=== PATIENT | male | born 1960 | race Caucasian/White ===

== ENCOUNTER 2016-07-09 08:20 | Emergency (ER) | payer MEDICAID ==
--- NOTE | 2016-07-09 08:31 | ED Physician Chart ---
Chief Complaint/HPI - Patient Information Date Seen:: 07/09/16 Time Seen:: 08:30 Chief Complaint:: Fever for one day. History of Present Illness:: Pt c/o fever for one day. Pt has had sorethroat, ?nasal congestion, sinus pressure, and body ache. Pt has had occasional cough. No dyspnea. Taking po well without N/V/D. Allergies:: Allergies Allergy/AdvReac Type Severity Reaction Status Date / Time No Known Allergies Allergy Verified 02/09/16 20:44 Historian:: Patient Family MD/PCP:: Dr. Jorgensen. LMP:: N/A Review:: Nurse's Note Reviewed Review of Systems - Review of Systems General/Constitutional: Fever, No chills, No weight loss, No weakness, No edema , No loss of appetite Skin: No skin lesions, No rash, No bruising Head: No headache, No light-headedness Eyes: No loss of vision, No pain, No diplopia ENT: No earache, Nasal drainage (?), Sore throat Neck: No neck pain, No swelling, No thyromegaly, No stiffness, No mass noted Cardio Vascular: No chest pain, No palpitations, No PND, No orthopnea, No edema Pulmonary: No SOB, Cough, No sputum, No wheezing GI: No nausea, No vomiting, No diarrhea, No pain, No melena, No hematochezia, No constipation, No hematemesis G/U: No dysuria, No frequency, No hematuria Musculoskeletal: Other (Body ache.) Endocrine: No polyuria, No polydipsia Psychiatric: No prior psych history Hematopoietic: No bruising, No lymphadenopathy Allergic/Immuno: No urticaria, No angioedema Neurological: No syncope, No focal symptoms, No weakness, No paresthesia, No headache, No seizure, No dizziness, No confusion, No vertigo Past Medical History - Past Medical History Past Medical History: HTN Family History: Diabetes Melitus Social History: Non Smoker, No Alcohol, No Drug Use, , Other (lives with his .) Employment:: newspaper delivery driver. Surgical History: None Psychiatricy History: None Medication: Reviewed Family Medical History - Family Member Father Ethnicity: Hx Family Diabetes: Yes Mother History Unknown: Yes Physical Exam - Physical Examination General/Constitutional: Awake, Well-developed, well-nourished, Alert, No distress, GCS 15, Non-toxic appearing, Ambulatory Other Gen/Cons comments:: Breathes comfortably, speaks clearly, and ambulates without difficulty. Head: Atraumatic Other Head comments:: Mild tenderness to percussion at frontal and maxillary sinus regions. Eyes: Lids, conjuctiva normal, PERRL, EOMI Skin: Nl inspection, No rash, No skin lesions, No ecchymosis, Well hydrated, No lymphadenopathy ENMT: External ears, nose nl, TM canals nl, Nasal exam nl, Lips, teeth, gums nl , Oropharynx nl, Tonsils nl Other ENMT comments:: except trace light yellow postnasal drip. Neck: Nontender, Full ROM w/o pain, No JVD, No nuchal rigidity, No mass, No stridor Respiratory: Nl effort/Exclusion, Clear to Auscultation, No Wheeze/Rhonchi/Rales Cardio Vascular: RRR, No murmur, gallop, rubs, NL S1 S2 GI: No tenderness/rebounding/guarding, No organomegaly, No hernia, Normal BS's, Nondistended, No mass/bruits, No McBurney tenderness Other GI comments:: Obese but soft. Extremities: No tenderness or effusion, Full ROM, normal strength in all extremities, No edema, Normal digits & nails Neuro/Psych: Alert/oriented (oriented x 3), Judgement/insight normal, Mood normal, Normal gait, No focal deficits Misc: normal gait, Normal back, No paraspinal tenderness ED Septic Shock - . Is Septic Shock (SBP<90, OR Lactate>4 mmol\L) present?: No Reassessment (Disposition) - Reassessment Reassessment:: 0945 Pt has been repeatedly evaluated. Pt feels much better and requests to go home now. Pt does not want further observation/management at hospital even he still has a low grade fever. Pt states that he will monitor his body temperature at home and will follow with his PCP Dr. Pa tomorrow. Aftercare instructions given. Reassessment Condition:: Improved - Diagnosis Diagnosis:: Viral syndrome with superimposed acute sinusitis, stable and improved. - Aftercare/Follow up Instructions Aftercare/Follow-Up Instructions:: Refer to Discharge Instructions Notes:: Bedrest. Push oral fluid. Fever instructions given. May take Motrin 200 mg tab 4 tabs po q8h and or Tylenol 500 mg tab one tab po q4-6h prn for fever or pain. F/U with PCP Dr. Pa in one day for recheck. Return to ER immediately if condition worsens or if any further questions/problems. Medication Prescribed:: Bactrim DS one tab po q12h for 14 days. D-28 R-0 - Patient Disposition Discharge/Transfer:: Home Time:: 09:50 Condition at Disposition:: Stable, Improved
== END 2016-07-09 09:59 | disposition home or self-care (01) ==
LOC: ER 08:20
DX: B34.9 Viral infection, unspecified (principal); J01.90 Acute sinusitis, unspecified; I10 Essential (primary) hypertension
CPT/HCPCS: Z7502